=== PATIENT | male | born 1995 | race Caucasian/White ===

== ENCOUNTER 2017-02-11 10:26 | Emergency (ER) | payer BC ==
[~2017-02-11] VITALS: Ht 175.3 cm; Wt 92.4 kg
[2017-02-11 10:53] VITALS: TEMP 36.9; Ht 175.3 cm; Wt 92.4 kg
[2017-02-11] MEDS ORDERED: NXM/40 PO (11:44)
--- NOTE | 2017-02-11 11:52 | EMERGENCY ROOM VISIT NOTE ---
History Report prepared by Valerio: Saul Mayfield Under the Supervision of: Dr. Latonya Nieves D.O. First contact with patient: 11:17 Chief Complaint: ABDOMINAL PAIN Stated Complaint: LOWER RIGHT STOMACH PAIN History of Present Illness The patient is a 21 year old male who presents to the Emergency Room with complaints of worsening right lower abdominal pain that started 3 days ago. He says that the pain intermittently radiates across his lower abdomen to his right lower quadrant. He states that the pain gets worse with walking, as well with bumps on the road. The patient says that the first 2 days, the pain was intermittent, but today the pain has been more constant. He notes that he has had a decreased appetite the past few days. He also notes no recent sick contacts. He denies any back pain, nausea, vomiting, fevers, chills, cough, diarrhea, genital pain, or changes in bowel movements. The patient states that he has not had any recent changes in foods or medications. He says that his mother had to have her gallbladder removed. The patient says that he has a history of reflux, and is on a medication for it. He notes no history of abdominal surgeries. Source of History: patient Onset: 3 days ago Position: abdomen (RLQ) Quality: other (intermittently radiates across lower abdomen) Timing: worsening Modifying Factors (Worsening): other (walking, bumps in road) Associated Symptoms: No fevers, No chills, No cough, No nausea, No vomiting , No back pain, No diarrhea Note: Associated symptoms: Decreased appetite. Denies genital pain, change in bowel movements. Review of Systems See HPI for pertinent positives & negatives. A total of 10 systems reviewed and were otherwise negative. Past Medical & Surgical Medical Problems: (1) Acid reflux (2) Opiate addiction Family History Gallbladder disease Social History Smoking Status: Current Every Day Smoker Drug Use: other (opiates - in rehab) Housing Status: lives with family Current/Historical Medications Scheduled Esomeprazole Magnesium (Nexium), 40 MG PO DAILY Allergies Coded Allergies: No Known Allergies (Unverified , 02/11/17) Physical Exam Vital Signs Date Time Temp Pulse Resp B/P (MAP) Pulse Ox O2 Delivery O2 Flow Rate FiO2 02/11/17 15:46 78 18 100/54 99 02/11/17 14:29 85 18 124/70 99 Room Air 02/11/17 12:40 85 18 124/76 97 Room Air 02/11/17 10:53 36.9 104 20 127/87 98 Room Air Physical Exam GENERAL: alert, well appearing, well nourished, no distress, non-toxic EYE EXAM: normal conjunctiva, PERRL and EOM's grossly intact OROPHARYNX: no exudate, no erythema, lips, buccal mucosa, and tongue normal and mucous membranes are moist NECK: supple, no nuchal rigidity, no adenopathy, non-tender LUNGS: Clear to auscultation. Normal chest wall mechanics HEART: no murmurs, S1 normal and S2 normal ABDOMEN: Right lower quadrant tenderness. Pain at McBurney's point, negative Rovsing, negative psoas, negative obturator. Abdomen soft, normo-active bowel sounds, no masses, no rebound or guarding. BACK: Back is symmetrical on inspection and there is no deformity, no midline tenderness, no CVA tenderness. SKIN: no rashes and no bruising UPPER EXTREMITIES: upper extremities are grossly normal. LOWER EXTREMITIES: No pitting edema. NEURO EXAM: Normal sensorium, cranial nerves II-XII grossly intact, normal speech, no gross weakness of arms, no gross weakness of legs. Medical Decision & Procedures ER Provider Diagnostic Interpretation: CT results have been interpreted by the radiologist and reviewed by me. CT ABD/PELVIS IV AND ORAL CONT CLINICAL HISTORY: Right lower quadrant abdominal pain COMPARISON STUDY: None. TECHNIQUE: Following the IV administration of 94 mL of Optiray-320, CT scan of the abdomen and pelvis was performed from the lung bases to the proximal femurs. Images are reviewed in the axial, sagittal, and coronal planes. IV contrast was administered without complication. A dose lowering technique was utilized adhering to the principles of ALARA. CT DOSE: 452.86 mGy.cm FINDINGS: Lower chest: The heart is normal in size and configuration, without pericardial effusion. The lung bases and pleural spaces are clear. Liver: The contrast-enhanced liver is normal in size, contour, and attenuation. There is no intrahepatic biliary ductal dilatation. The hepatic veins and portal veins are patent. Gallbladder: Unremarkable. Spleen: Normal in size and attenuation. Pancreas: Unremarkable. Adrenal glands: Unremarkable. Kidneys: There is symmetric renal cortical enhancement. The kidneys are normal in size without hydronephrosis. Bowel: There are no transition zones indicate bowel obstruction. There is no acute diverticulitis. The visualized portions of the appendix are felt to be normal. There is borderline bowel wall thickening involving the terminal ileum. Peritoneum: There is no intraperitoneal free air or abdominal ascites. Vasculature: The abdominal aorta is normal in course and caliber. Adenopathy: There are mildly prominent right ileocolic lymph nodes likely reactive. Pelvic viscera: The bladder, and pelvic viscera are unremarkable. Skeletal structures: No destructive osseous lesions are seen. IMPRESSION: 1. No evidence of bowel obstruction. No evidence of free air 2. No evidence of acute diverticulitis. No evidence of acute appendicitis 3. Prominent ileocolic lymph nodes, likely reactive 4. Borderline thickening of the terminal ileum. This could represent a mild terminal ileitis. Electronically signed by: Marquise Beth M.D. 02/11/2017 2:33 PM Dictated Date/Time: 02/11/2017 2:29 PM Laboratory Results 02/11/17 11:30 Red Blood Count 5.84, Mean Corpuscular Volume 82.0, Mean Corpuscular Hemoglobin 29.5, Mean Corpuscular Hemoglobin Concent 35.9, Mean Platelet Volume 9.4, Neutrophils (%) (Auto) 69.6, Lymphocytes (%) (Auto) 18.7, Monocytes (%) (Auto) 11.2, Eosinophils (%) (Auto) 0.1, Basophils (%) (Auto) 0.1, Neutrophils # (Auto ) 5.21, Lymphocytes # (Auto) 1.40, Monocytes # (Auto) 0.84, Eosinophils # (Auto ) 0.01, Basophils # (Auto) 0.01 02/11/17 11:30 Test 02/11/17 11:25 02/11/17 11:30 02/11/17 12:11 Urine Color YELLOW Urine Appearance CLOUDY (CLEAR) Urine pH 8.5 (4.5-7.5) Urine Specific [place] 1.028 (1.000-1.030) Urine Protein NEG (NEG) Urine Glucose (UA) NEG (NEG) Urine Ketones 1+ (NEG) Urine Occult Blood NEG (NEG) Urine Nitrite NEG (NEG) Urine Bilirubin NEG (NEG) Urine Urobilinogen NEG (NEG) Urine Leukocyte Esterase NEG (NEG) Urine WBC (Auto) 1-5 /hpf (0-5) Urine RBC (Auto) 0-4 /hpf (0-4) Urine Hyaline Casts (Auto) 0 /lpf (0-5) Urine Epithelial Cells (Auto) 5-10 /lpf (0-5) Urine Bacteria (Auto) NEG (NEG) White Blood Count 7.49 K/uL (4.8-10.8) Red Blood Count 5.84 M/uL (4.7-6.1) Hemoglobin 17.2 g/dL (14.0-18.0) Hematocrit 47.9 % (42-52) Mean Corpuscular Volume 82.0 fL (80-100) Mean Corpuscular Hemoglobin 29.5 pg (25-34) Mean Corpuscular Hemoglobin Concent 35.9 g/dl (32-36) Platelet Count 221 K/uL (130-400) Mean Platelet Volume 9.4 fL (7.4-10.4) Neutrophils (%) (Auto) 69.6 % Lymphocytes (%) (Auto) 18.7 % Monocytes (%) (Auto) 11.2 % Eosinophils (%) (Auto) 0.1 % Basophils (%) (Auto) 0.1 % Neutrophils # (Auto) 5.21 K/uL (1.4-6.5) Lymphocytes # (Auto) 1.40 K/uL (1.2-3.4) Monocytes # (Auto) 0.84 K/uL (0.11-0.59) Eosinophils # (Auto) 0.01 K/uL (0-0.5) Basophils # (Auto) 0.01 K/uL (0-0.2) RDW Standard Deviation 37.7 fL (36.4-46.3) RDW Coefficient of Variation 12.6 % (11.5-14.5) Immature Granulocyte % (Auto) 0.3 % Immature Granulocyte # (Auto) 0.02 K/uL (0.00-0.02) Anion Gap 4.0 mmol/L (3-11) Est Creatinine Clear Calc Drug Dose 153.6 ml/min Estimated GFR () 143.0 Estimated GFR (Non- 123.4 BUN/Creatinine Ratio 16.3 (10-20) Calcium Level 9.2 mg/dl (8.5-10.1) Total Bilirubin 0.7 mg/dl (0.2-1) Aspartate Amino Transf (AST/SGOT) 14 U/L (15-37) Alanine Aminotransferase (ALT/SGPT) 28 U/L (12-78) Alkaline Phosphatase 63 U/L (45-117) Total Protein 7.9 gm/dl (6.4-8.2) Albumin 4.4 gm/dl (3.4-5.0) Globulin 3.5 gm/dl (2.5-4.0) Albumin/Globulin Ratio 1.3 (0.9-2) Lipase 158 U/L (73-393) Lactic Acid Level 0.8 mmol/L (0.4-2.0) Laboratory results per my review. ED Course 1144: The patient was evaluated in room C3. A complete history and physical exam was performed. 1319: I reevaluated and updated the patient. 1452: Upon reevaluation, the patient is feeling better. I discussed the findings and the treatment plan with the patient. He verbalizes agreement and understanding. He was discharged home. Medical Decision Differential diagnoses includes but is not limited to gastritis, peptic ulcer disease, GERD, gallbladder disease, pancreatitis, small bowel obstruction, acute coronary syndrome, pericarditis, ischemic bowel, irritable bowel disease, irritable bowel syndrome, appendicitis, diverticulitis, malignancy, hernia, urinary tract infection, torsion, perforation, trauma, infectious. No evidence of appy,perf, uti, stone. Possible ileitis, no hx of IBD. No mesenteric adenitis. No fever or leukocytosis noted here. Doubt bacterial infection after 3 days of symptoms. No dietary changes to suggest yersinia or other food borne illness. Pt well appearing at DC, VS stable throughout, discussed f/u with PCP, sx to watch/return for, he verbalized understanding and was agreeable with plan. Medication Reconcilliation Current Medication List: was personally reviewed by me Blood Pressure Screening Patient's blood pressure: Normal blood pressure Impression Primary Impression: Right lower quadrant abdominal pain Scribe Attestation The scribe's documentation has been prepared under my direction and personally reviewed by me in its entirety. I confirm that the note above accurately reflects all work, treatment, procedures, and medical decision making performed by me. Departure Information Dispostion Home / Self-Care Referrals No Doctor, Assigned (PCP) Patient Instructions My [facility] Additional Instructions Please drink plenty of water to stay well-hydrated, please eat a late and bland diet for at least 24 hours until you're feeling better. You may use Tylenol and ibuprofen as needed for pain. If you develop worsening pain, develop fevers , vomiting, diarrhea, noticed blood with the bowel movement, or you have any other new concerns, please return the emergency room.
[2017-02-11] MEDS ORDERED: OPTIRAY 320 IV PRN (12:15)
[2017-02-11 12:19] LABS: URINE APPEARANCE CLOUDY (CLEAR); URINE BILIRUBIN NEG (NEG); URINE COLOR YELLOW; URINE NITRITE NEG (NEG); URINE PH 8.5 (4.5-7.5); URINE SPECIFIC GRAVITY 1.028 (1.000-1.030); UROBILINOGEN NEG (NEG); ZZUR CULT IF INDIC CLEAN CATCH NO
[2017-02-11 12:22] LABS: MANUAL MICROSCOPIC REQUIRED? NO; REVIEW REQ? NO
[2017-02-11 12:31] LABS: BASO % 0.1 %; BASO ABS # 0.01 K/uL (0-0.2); COMPLETE YES; EOS % 0.1 %; HEMATOCRIT 47.9 % (42-52); IG% 0.3 %; LYMPH % 18.7 %; MEAN CORPUSCULAR HEMOGLOBIN 29.5 pg (25-34); MEAN CORPUSCULAR HGB CONC 35.9 g/dl (32-36); MEAN PLATELET VOLUME 9.4 fL (7.4-10.4); MONO % 11.2 %; NEUT % 69.6 %; PLATELET COUNT 221 K/uL (130-400); RED BLOOD COUNT 5.84 M/uL (4.7-6.1); WHITE BLOOD COUNT 7.49 K/uL (4.8-10.8)
[2017-02-11 12:39] LABS: BUN/CREATININE RATIO 16.3 (10-20); CALCIUM 9.2 mg/dl (8.5-10.1); CREATININE 0.84 mg/dl (0.60-1.40)
[2017-02-11 12:42] LABS: ALB/GLOB RATIO 1.3 (0.9-2)
--- NOTE | 2017-02-11 14:34 | DIAGNOSTIC IMAGING REPORT ---
CT ABD/PELVIS IV AND ORAL CONT CLINICAL HISTORY: Right lower quadrant abdominal pain COMPARISON STUDY: None. TECHNIQUE: Following the IV administration of 94 mL of Optiray-320, CT scan of the abdomen and pelvis was performed from the lung bases to the proximal femurs. Images are reviewed in the axial, sagittal, and coronal planes. IV contrast was administered without complication. A dose lowering technique was utilized adhering to the principles of ALARA. CT DOSE: 452.86 mGy.cm FINDINGS: Lower chest: The heart is normal in size and configuration, without pericardial effusion. The lung bases and pleural spaces are clear. Liver: The contrast-enhanced liver is normal in size, contour, and attenuation. There is no intrahepatic biliary ductal dilatation. The hepatic veins and portal veins are patent. Gallbladder: Unremarkable. Spleen: Normal in size and attenuation. Pancreas: Unremarkable. Adrenal glands: Unremarkable. Kidneys: There is symmetric renal cortical enhancement. The kidneys are normal in size without hydronephrosis. Bowel: There are no transition zones indicate bowel obstruction. There is no acute diverticulitis. The visualized portions of the appendix are felt to be normal. There is borderline bowel wall thickening involving the terminal ileum. Peritoneum: There is no intraperitoneal free air or abdominal ascites. Vasculature: The abdominal aorta is normal in course and caliber. Adenopathy: There are mildly prominent right ileocolic lymph nodes likely reactive. Pelvic viscera: The bladder, and pelvic viscera are unremarkable. Skeletal structures: No destructive osseous lesions are seen. IMPRESSION: 1. No evidence of bowel obstruction. No evidence of free air 2. No evidence of acute diverticulitis. No evidence of acute appendicitis 3. Prominent ileocolic lymph nodes, likely reactive 4. Borderline thickening of the terminal ileum. This could represent a mild terminal ileitis. Electronically signed by: Marquise Beth M.D. 02/11/2017 2:33 PM Dictated Date/Time: 02/11/2017 2:29 PM
[2017-02-11 15:46] VITALS: BP 100/54; PULSE 78; O2SAT 99
== END 2017-02-11 15:46 | disposition home or self-care (01) ==
LOC: C.EDB 10:29 → C.EDC 15:46
DX: R10.31 Right lower quadrant pain (principal); K21.9 Gastro-esophageal reflux disease without esophagitis; Z79.899 Other long term (current) drug therapy; Z83.79 Family history of other diseases of the digestive system; F17.200 Nicotine dependence, unspecified, uncomplicated